=== PATIENT | female | born 1975 | race Caucasian/White ===

== ENCOUNTER 2021-02-05 15:06 | Inpatient (IN) | payer MEDICAID, SELFPAY ==
[~2021-02-05] VITALS: Ht 154.9 cm; Wt 59.5 kg
[2021-02-05 16:26] VITALS: BP_SYST 155
[2021-02-05] MEDS ORDERED: HALOPERIDOL LACTATE 5 MG/ML VIAL IM ONE (17:00)
[2021-02-05 17:25] LABS: BILIRUBIN,URINE 1+ (NEGATIVE); BLOOD, URINE 2+ (NEGATIVE); COLOR,URINE YELLOW (YELLOW); GLUCOSE,URINE NEGATIVE (NEGATIVE); KETONES,URINE 3+ (NEGATIVE); LEUKOCYTE ESTERASE ,URINE NEGATIVE (NEGATIVE); NITRITE, URINE NEGATIVE (NEGATIVE); PROTEIN URINE 2+ (NEGATIVE); UROBILINOGEN,URINE 0.2 (0.2-1.0)
[2021-02-05 17:38] LABS: ANION GAP 11 (5-15); BASOPHILS % (AUTO) 0.4 % (0.0-2.0); CALCIUM 9.4 mg/dL (8.4-11.0); CHLORIDE 95 mmol/L (98-107); GLUCOSE 125 mg/dL (70-99); HEMATOCRIT 34.6 % (36-48); HEMOGLOBIN 10.9 g/dL (12.0-16.0); LYMPHOCYTES # (AUTO) 0.8 K/uL (1.0-5.5); LYMPHOCYTES % (AUTO) 12.3 % (20.5-51.5); MEAN CORPUSCULAR HEMOGLOBIN 23 pg (27-31); MEAN CORPUSCULAR HGB CONC 32 % (32-36); MEAN CORPUSCULAR VOLUME 74 fL (79.0-98.0); MONOCYTES # (AUTO) 0.2 K/uL (0.0-1.0); MONOCYTES % (AUTO) 3.3 % (1.7-9.3); NEUTROPHILS # (AUTO) 5.7 K/uL (1.8-7.7); PLATELET COUNT (AUTO) 322 K/uL (130-430); POTASSIUM 3.5 mmol/L (3.5-5.1); PROTHROMBIN TIME 10.2 SECS (9.5-12.5); RED BLOOD CELL COUNT(AUTO) 4.68 MIL/uL (4.2-6.2); RED CELL DISTRIBUTION WIDTH 18.9 % (9.0-15.0); SODIUM SERUM 135 mmol/L (136-145); UREA NITROGEN, BLOOD 24 mg/dL (8-21); WHITE BLOOD COUNT (AUTO) 6.8 K/uL (4.8-10.8)
[2021-02-05 17:40] LABS: ALANINE AMINOTRANSFERASE 30 U/L (12-78); ALBUMIN 4.6 g/dL (3.4-4.8); AMYLASE 47 U/L (0-100); ASPARTATE AMINOTRANSFERASE 31 U/L (10-37); LIPASE 93 U/L (73-393); TOTAL BILIRUBIN 0.5 mg/dL (0.0-1.0)
[2021-02-05 17:42] LABS: CLARITY/URINE HAZY (CLEAR)
[2021-02-05 17:47] LABS: BACTERIA,URINE MODERATE /HPF (None Seen); RBC,URINE 0-3 /HPF (0-3); WBC,URINE 0-3 /HPF (0-3)
[2021-02-05 17:50] LABS: GFR AFRICAN AMERICAN 115 mL/min (>90)
[2021-02-05] MEDS ORDERED: NACL 0.9% 1,000 ML IV ONE (18:00)
[2021-02-05 18:18] LABS: C-REACTIVE PROTEIN QUANT < 0.2 mg/dL (0-0.5)
[2021-02-05] MEDS ORDERED: ASA81 PO (18:24)
[2021-02-05] MEDS ORDERED: METO25TA3 PO (18:24)
[2021-02-05] MEDS ORDERED: ASPIRIN 325 MG TABLET PO ONE (18:45)
[2021-02-05] MEDS ORDERED: MORPHINE 2 MG/ML INJ. SYRINGE IVP ONE (18:45)
[2021-02-05] MEDS ORDERED: PANTOPRAZOLE SODIUM 40 MG/VIAL (PROTONIX) IVP ONE (19:15)
[2021-02-05] MEDS: METOPROLOL SUCCINATE 25 MG TAB.SR.24H (TOPROL XL) PO SCH (19:15)
[2021-02-05] MEDS ORDERED: NITROGLYCERIN 0.4 MG TAB.SUBL SL PRN (19:30)
[2021-02-05] MEDS ORDERED: MAG-AL HYDROX/SIMETH 30 ML UDC PO ONE (19:30)
[2021-02-05] MEDS ORDERED: METOCLOPRAMIDE HCL 10 MG/2 ML VIAL IVP PRN (19:30)
[2021-02-05] MEDS ORDERED: ONDANSETRON HCL 4 MG/2 ML VIAL IVP PRN (19:30)
[2021-02-05] MEDS ORDERED: MAG-AL HYDROX/SIMETH 30 ML UDC PO PRN (19:30)
[2021-02-05 20:00] LABS: BARBITURATE, URINE NEGATIVE (NEG <=200); BENZODIAZEPINE, URINE NEGATIVE (NEG <=150); CANNABINOID, URINE POSITIVE (NEG <=50); COCAINE, URINE NEGATIVE (NEG <=150); METHAMPHETAMINES SCREEN,URINE NEGATIVE (NEG <=500); OPIATE, URINE NEGATIVE (NEG <=100); PHENCYCLIDINE SCREEN,URINE NEGATIVE (NEG <=25); UR TRICYCLIC ANTIDEPRESSANTS NEGATIVE (NEG <=300); URINE AMPHETAMINE NEGATIVE (NEG <=500); URINE METHADONE NEGATIVE (NEG <=200); URINE OXYCODONE SCREEN NEGATIVE (NEG <=100); URINE PROPOXYPHENE SCREEN NEGATIVE (NEG <=300)
[2021-02-05] MEDS: ASPIRIN 81 MG TAB.CHEW PO SCH (20:03)
[2021-02-05] MEDS: D5LR 1,000 ML IV SCH (20:16)
[2021-02-05] MEDS: LORazepam 2 MG/ML VIAL IVP PRN (20:18)
[2021-02-05] MEDS ORDERED: METOPROLOL SUCCINATE 25 MG TAB.SR.24H (TOPROL XL) PO ONE (20:44)
[2021-02-05] MEDS ORDERED: ENOXAPARIN SODIUM 60 MG/0.6 ML SYRINGE SUBCUT SCH (21:00)
[2021-02-05 21:25] LABS: ACETONE, SERUM NEGATIVE (NEGATIVE)
[2021-02-06 02:31] VITALS: BP_SYST 102
[2021-02-06] MEDS: D5LR 1,000 ML IV SCH ×2 (05:02→15:06)
[2021-02-06 06:48] LABS: BASOPHILS % (AUTO) 0.7 % (0.0-2.0); EOSINOPHILS % (AUTO) 0.3 % (0.0-4.0); HEMATOCRIT 28.5 % (36-48); LYMPHOCYTES # (AUTO) 3.1 K/uL (1.0-5.5); MEAN CORPUSCULAR HEMOGLOBIN 23 pg (27-31); MEAN CORPUSCULAR HGB CONC 32 % (32-36); MEAN CORPUSCULAR VOLUME 74 fL (79.0-98.0); MONOCYTES # (AUTO) 0.6 K/uL (0.0-1.0); MONOCYTES % (AUTO) 9.3 % (1.7-9.3); NEUTROPHILS # (AUTO) 2.3 K/uL (1.8-7.7); NEUTROPHILS % (AUTO) 37.7 % (40.0-70.0); PLATELET COUNT (AUTO) 254 K/uL (130-430); RED BLOOD CELL COUNT(AUTO) 3.85 MIL/uL (4.2-6.2); RED CELL DISTRIBUTION WIDTH 18.7 % (9.0-15.0); WHITE BLOOD COUNT (AUTO) 6.1 K/uL (4.8-10.8)
[2021-02-06 07:45] VITALS: BP_SYST 112
[2021-02-06 08:14] LABS: ALBUMIN 3.4 g/dL (3.4-4.8); CALCIUM 8.8 mg/dL (8.4-11.0); CREATININE 0.53 mg/dL (0.55-1.30); PHOSPHORUS 3.3 mg/dL (2.7-4.5); THYROID STIMULATING HORMONE 3.48 uIu/mL (0.36-3.74); TOTAL BILIRUBIN 0.4 mg/dL (0.0-1.0)
[2021-02-06] MEDS ORDERED: MILK OF MAGNESIA 30 ML UDC PO ONE (08:15)
[2021-02-06] MEDS ORDERED: BISACODYL 10 MG/SUPPOSITORY RC ONE (08:15)
[2021-02-06] MEDS: ASPIRIN 81 MG TAB.CHEW PO SCH (08:48)
[2021-02-06] MEDS: PANTOPRAZOLE SODIUM 40 MG/VIAL (PROTONIX) IVP SCH ×2 (08:48→21:10)
[2021-02-06] MEDS: METOPROLOL SUCCINATE 25 MG TAB.SR.24H (TOPROL XL) PO SCH (08:49)
[2021-02-06] MEDS: LORazepam 2 MG/ML VIAL IVP PRN ×3 (08:58→23:14)
[2021-02-06 09:45] LABS: POTASSIUM 2.9 mmol/L (3.5-5.1)
[2021-02-06 11:23] VITALS: BP_SYST 93
[2021-02-06] MEDS ORDERED: POTASSIUM CHLORIDE 40 MEQ, LIDOCAINE JECT 2% PF 100 MG 50 MG in NS 250 ML IV ONE (11:30)
[2021-02-06 15:30] VITALS: BP_SYST 99
[2021-02-06] MEDS ORDERED: POTASSIUM CHLORIDE 20 MEQ TAB.PRT.SR PO ONE (17:30)
[2021-02-06 20:00] VITALS: BP_SYST 97
[2021-02-06] MEDS ORDERED: POTASSIUM CHLORIDE 20 MEQ TAB.PRT.SR PO SCH (21:00)
[2021-02-06] MEDS: POTASSIUM CHLORIDE 20 MEQ TAB.PRT.SR PO SCH (21:09)
[2021-02-06] MEDS: TEMAZEPAM 15 MG CAPSULE PO PRN (21:09)
[2021-02-07] VITALS: BP_SYST 96
[2021-02-07 07:01] LABS: BASOPHILS % (AUTO) 0.9 % (0.0-2.0); EOSINOPHILS % (AUTO) 0.6 % (0.0-4.0); HEMATOCRIT 25.3 % (36-48); HEMOGLOBIN 7.9 g/dL (12.0-16.0); LYMPHOCYTES # (AUTO) 1.9 K/uL (1.0-5.5); MEAN CORPUSCULAR HEMOGLOBIN 23 pg (27-31); MEAN CORPUSCULAR HGB CONC 31 % (32-36); MEAN CORPUSCULAR VOLUME 75 fL (79.0-98.0); MONOCYTES # (AUTO) 0.3 K/uL (0.0-1.0); MONOCYTES % (AUTO) 8.9 % (1.7-9.3); NEUTROPHILS # (AUTO) 1.1 K/uL (1.8-7.7); NEUTROPHILS % (AUTO) 32.6 % (40.0-70.0); PLATELET COUNT (AUTO) 211 K/uL (130-430); RED BLOOD CELL COUNT(AUTO) 3.37 MIL/uL (4.2-6.2); RED CELL DISTRIBUTION WIDTH 19.1 % (9.0-15.0); WHITE BLOOD COUNT (AUTO) 3.3 K/uL (4.8-10.8)
[2021-02-07 07:56] LABS: CALCIUM 8.1 mg/dL (8.4-11.0); CREATININE 0.52 mg/dL (0.55-1.30); PHOSPHORUS 3.8 mg/dL (2.7-4.5); POTASSIUM 3.5 mmol/L (3.5-5.1); TOTAL BILIRUBIN 0.2 mg/dL (0.0-1.0)
[2021-02-07 08:00] VITALS: BP_SYST 119
[2021-02-07] MEDS: METOPROLOL SUCCINATE 25 MG TAB.SR.24H (TOPROL XL) PO SCH (08:52)
[2021-02-07] MEDS: POTASSIUM CHLORIDE 20 MEQ TAB.PRT.SR PO SCH ×2 (08:52→21:08)
[2021-02-07] MEDS: PANTOPRAZOLE SODIUM 40 MG/VIAL (PROTONIX) IVP SCH ×2 (08:53→21:09)
[2021-02-07] MEDS: ASPIRIN 81 MG TAB.CHEW PO SCH (08:53)
[2021-02-07] MEDS: D5LR 1,000 ML IV SCH ×3 (11:30→21:30)
[2021-02-07 12:00] VITALS: BP_SYST 125
[2021-02-07] MEDS: ACETAMINOPHEN 325 MG TABLET PO PRN (12:37)
[2021-02-07] MEDS: LORazepam 2 MG/ML VIAL IVP PRN (13:41)
[2021-02-07 14:39] LABS: BASOPHILS % (AUTO) 0.7 % (0.0-2.0); EOSINOPHILS % (AUTO) 0.8 % (0.0-4.0); HEMATOCRIT 26.3 % (36-48); HEMOGLOBIN 8.4 g/dL (12.0-16.0); LYMPHOCYTES # (AUTO) 1.9 K/uL (1.0-5.5); LYMPHOCYTES % (AUTO) 46.3 % (20.5-51.5); MEAN CORPUSCULAR HEMOGLOBIN 24 pg (27-31); MEAN CORPUSCULAR HGB CONC 32 % (32-36); MEAN CORPUSCULAR VOLUME 75 fL (79.0-98.0); MONOCYTES # (AUTO) 0.3 K/uL (0.0-1.0); MONOCYTES % (AUTO) 7.8 % (1.7-9.3); NEUTROPHILS # (AUTO) 1.9 K/uL (1.8-7.7); NEUTROPHILS % (AUTO) 44.4 % (40.0-70.0); PLATELET COUNT (AUTO) 225 K/uL (130-430); RED BLOOD CELL COUNT(AUTO) 3.51 MIL/uL (4.2-6.2); RED CELL DISTRIBUTION WIDTH 18.9 % (9.0-15.0); WHITE BLOOD COUNT (AUTO) 4.2 K/uL (4.8-10.8)
[2021-02-07 15:01] LABS: TOTAL IRON BIND. CAPACITY 355 ug/dL (250-450)
[2021-02-07] MEDS ORDERED: DIATR MEGLU/DIATRIZ SOD 30 ML SOLUTION PO ONE (16:12)
[2021-02-07 20:00] VITALS: BP_SYST 108
[2021-02-07] MEDS: SOD FERRIC GLUC COMPLEX/SUC 125 MG in NS 100 ML IV SCH (21:00)
[2021-02-07] MEDS: TEMAZEPAM 15 MG CAPSULE PO PRN (21:08)
[2021-02-08 04:00] VITALS: BP_SYST 118
[2021-02-08] MEDS ORDERED: SOD FERRIC GLUC COMPLEX/SUC 62.5 MG/5 ML VIAL (FERRLECIT) IV ONE (06:19)
[2021-02-08 06:35] LABS: BASOPHILS % (AUTO) 0.7 % (0.0-2.0); HEMATOCRIT 27.3 % (36-48); HEMOGLOBIN 8.5 g/dL (12.0-16.0); LYMPHOCYTES # (AUTO) 2.1 K/uL (1.0-5.5); LYMPHOCYTES % (AUTO) 52.3 % (20.5-51.5); MEAN CORPUSCULAR HEMOGLOBIN 23 pg (27-31); MEAN CORPUSCULAR HGB CONC 31 % (32-36); MEAN CORPUSCULAR VOLUME 75 fL (79.0-98.0); MONOCYTES # (AUTO) 0.3 K/uL (0.0-1.0); MONOCYTES % (AUTO) 8.5 % (1.7-9.3); NEUTROPHILS # (AUTO) 1.5 K/uL (1.8-7.7); NEUTROPHILS % (AUTO) 37.5 % (40.0-70.0); PLATELET COUNT (AUTO) 241 K/uL (130-430); RED BLOOD CELL COUNT(AUTO) 3.63 MIL/uL (4.2-6.2); RED CELL DISTRIBUTION WIDTH 18.7 % (9.0-15.0); WHITE BLOOD COUNT (AUTO) 4.1 K/uL (4.8-10.8)
[2021-02-08 07:03] LABS: ALBUMIN 3.5 g/dL (3.4-4.8); CALCIUM 9.2 mg/dL (8.4-11.0); CREATININE 0.54 mg/dL (0.55-1.30); TOTAL BILIRUBIN 0.2 mg/dL (0.0-1.0)
[2021-02-08] MEDS: D5LR 1,000 ML IV SCH ×2 (07:30→17:31)
[2021-02-08 07:55] VITALS: BP_SYST 112
[2021-02-08] MEDS: METOPROLOL SUCCINATE 25 MG TAB.SR.24H (TOPROL XL) PO SCH (08:28)
[2021-02-08 08:30] LABS: TOTAL IRON BIND. CAPACITY 360 ug/dL (250-450)
[2021-02-08] MEDS: PANTOPRAZOLE SODIUM 40 MG/VIAL (PROTONIX) IVP SCH ×2 (08:36→22:16)
[2021-02-08] MEDS: POTASSIUM CHLORIDE 20 MEQ TAB.PRT.SR PO SCH ×2 (08:36→22:16)
[2021-02-08] MEDS: ACETAMINOPHEN 325 MG TABLET PO PRN (08:36)
[2021-02-08] MEDS: ASPIRIN 81 MG TAB.CHEW PO SCH (08:36)
[2021-02-08] MEDS: LORazepam 2 MG/ML VIAL IVP PRN ×2 (10:40→17:20)
[2021-02-08 12:00] VITALS: BP_SYST 103
[2021-02-08 16:00] VITALS: BP_SYST 130
[2021-02-08 20:00] VITALS: BP_SYST 122
[2021-02-08] MEDS: SOD FERRIC GLUC COMPLEX/SUC 125 MG in NS 100 ML IV SCH (22:17)
[2021-02-08] MEDS: TEMAZEPAM 15 MG CAPSULE PO PRN (23:06)
[2021-02-09 01:24] VITALS: BP_SYST 101
[2021-02-09 06:06] LABS: FOLATE (FOLIC ACID) 14.1 ng/mL (>3.0)
[2021-02-09 07:01] LABS: BASOPHILS % (AUTO) 0.9 % (0.0-2.0); EOSINOPHILS % (AUTO) 1.1 % (0.0-4.0); HEMATOCRIT 29.3 % (36-48); HEMOGLOBIN 9.3 g/dL (12.0-16.0); LYMPHOCYTES # (AUTO) 1.5 K/uL (1.0-5.5); LYMPHOCYTES % (AUTO) 37.5 % (20.5-51.5); MEAN CORPUSCULAR HEMOGLOBIN 24 pg (27-31); MEAN CORPUSCULAR HGB CONC 32 % (32-36); MEAN CORPUSCULAR VOLUME 74 fL (79.0-98.0); MONOCYTES # (AUTO) 0.3 K/uL (0.0-1.0); MONOCYTES % (AUTO) 7.7 % (1.7-9.3); NEUTROPHILS # (AUTO) 2.1 K/uL (1.8-7.7); NEUTROPHILS % (AUTO) 52.8 % (40.0-70.0); PLATELET COUNT (AUTO) 262 K/uL (130-430); RED BLOOD CELL COUNT(AUTO) 3.94 MIL/uL (4.2-6.2); RED CELL DISTRIBUTION WIDTH 19.3 % (9.0-15.0); RETICULOCYTE COUNT 1.2 % (0.5-1.5); WHITE BLOOD COUNT (AUTO) 3.9 K/uL (4.8-10.8)
[2021-02-09 07:49] VITALS: BP_SYST 139
[2021-02-09 07:57] LABS: CALCIUM 8.9 mg/dL (8.4-11.0); CREATININE 0.54 mg/dL (0.55-1.30); POTASSIUM 4.4 mmol/L (3.5-5.1)
[2021-02-09] MEDS: POTASSIUM CHLORIDE 20 MEQ TAB.PRT.SR PO SCH (09:39)
[2021-02-09] MEDS: METOPROLOL SUCCINATE 25 MG TAB.SR.24H (TOPROL XL) PO SCH (09:39)
[2021-02-09] MEDS: ASPIRIN 81 MG TAB.CHEW PO SCH (09:39)
[2021-02-09] MEDS: PANTOPRAZOLE SODIUM 40 MG/VIAL (PROTONIX) IVP SCH (09:39)
[2021-02-09 12:00] VITALS: BP_SYST 113
[2021-02-09] MEDS ORDERED: PRO40 PO (12:11)
[2021-02-09] MEDS ORDERED: MULT-1117 PO (12:12)
[2021-02-09] MEDS ORDERED: SOD FERRIC GLUC COMPLEX/SUC 125 MG in NS 100 ML IV ONE (12:15)
[2021-02-09] MEDS ORDERED: ONDA4TAB5 PO (12:19)
[2021-02-09 14:10] VITALS: BP_SYST 113
[2021-02-09] MEDS ORDERED: CYANOCOBALAMIN 1000 MCG/ML VIAL IM ONE (15:30)
[2021-02-09] MEDS ORDERED: FLU VACC QS2021-22(6MOS UP)/PF 0.5 ML/SYR SYRINGE I.M. ONE (16:15)
[2021-02-10] MEDS ORDERED: CYANOCOBALAMIN 1000 MCG/ML VIAL IM SCH (09:00)
== END 2021-02-09 17:15 | disposition home or self-care (01) | DRG 812 ==
LOC: SED 15:06 → STU 18:25 → SMU 02-08 09:57
PROVIDERS: ADMIT Internal Medicine; ATTEND Internal Medicine
DX: T40.711A Poisoning by cannabis, accidental (unintentional), initial encounter (principal); I21.4 Non-ST elevation (NSTEMI) myocardial infarction; D25.9 Leiomyoma of uterus, unspecified; D50.9 Iron deficiency anemia, unspecified; E87.6 Hypokalemia; F10.21 Alcohol dependence, in remission; F12.10 Cannabis abuse, uncomplicated; I48.0 Paroxysmal atrial fibrillation; K31.84 Gastroparesis; R11.2 Nausea with vomiting, unspecified; K29.70 Gastritis, unspecified, without bleeding; K59.00 Constipation, unspecified; K21.9 Gastro-esophageal reflux disease without esophagitis; R31.29 Other microscopic hematuria; I10 Essential (primary) hypertension; F41.9 Anxiety disorder, unspecified; N95.1 Menopausal and female climacteric states; Z20.822 Contact with and (suspected) exposure to COVID-19; Z79.82 Long term (current) use of aspirin; Z79.899 Other long term (current) drug therapy; Z88.6 Allergy status to analgesic agent; Z88.5 Allergy status to narcotic agent; Z83.3 Family history of diabetes mellitus; Z79.01 Long term (current) use of anticoagulants; Z87.891 Personal history of nicotine dependence; Z90.49 Acquired absence of other specified parts of digestive tract; Y92.89 Other specified places as the place of occurrence of the external cause
CPT/HCPCS: 36415; 71045; 74018; 76376; 76830-TC; 76857; 80048; 80053; 80061; 80307; 81000; 82009; 82150; 82272; 82607; 82728; 82746; 83540; 83550; 83605; 83690; 83735; 83880; 84100; 84439; 84443; 84484; 84703; 85025; 85044; 85610-TC; 85730-TC; 86140; 86886; 86900; 86901; 93005; 93306; 96361; 96372; 96374; 96375; 99285; C9113; G0378; J1630; J1650; J2060; J2270; J2916; J3420; J3480; J7050; Q9964; Q9967

== ENCOUNTER 2021-06-07 11:06 | Emergency (ER) | payer MEDICAID, SELFPAY ==
[~2021-06-07] VITALS: Ht 154.9 cm; Wt 63.5 kg
[2021-06-07 11:06] VITALS: BP_SYST 159
[~2021-06-07 11:06] MED LIST: ASA81 PO; METO25TA3 PO; MULT-1117 PO; ONDA4TAB5 PO; PRO40 PO
[2021-06-07] MEDS ORDERED: ASPIRIN 81 MG TAB.CHEW PO ONE (12:00)
[2021-06-07] MEDS ORDERED: NITROGLYCERIN LINGUAL 400 mCg/SPRAY SL PRN (12:00)
[2021-06-07 12:05] LABS: BASOPHILS % (AUTO) 0.4 % (0.0-2.0); EOSINOPHILS % (AUTO) 0.1 % (0.0-4.0); HEMATOCRIT 37.7 % (36-48); HEMOGLOBIN 12.5 g/dL (12.0-16.0); LYMPHOCYTES # (AUTO) 1.6 K/uL (1.0-5.5); LYMPHOCYTES % (AUTO) 31.1 % (20.5-51.5); MEAN CORPUSCULAR HEMOGLOBIN 29 pg (27-31); MEAN CORPUSCULAR HGB CONC 33 % (32-36); MEAN CORPUSCULAR VOLUME 89 fL (79.0-98.0); MONOCYTES # (AUTO) 0.3 K/uL (0.0-1.0); MONOCYTES % (AUTO) 6.4 % (1.7-9.3); NEUTROPHILS # (AUTO) 3.1 K/uL (1.8-7.7); PLATELET COUNT (AUTO) 201 K/uL (130-430); RED BLOOD CELL COUNT(AUTO) 4.26 MIL/uL (4.2-6.2); RED CELL DISTRIBUTION WIDTH 14.7 % (9.0-15.0)
[2021-06-07 12:09] LABS: CREATININE 0.53 mg/dL (0.55-1.30); POTASSIUM 3.5 mmol/L (3.5-5.1)
[2021-06-07 12:17] LABS: ALBUMIN 4.2 g/dL (3.4-4.8); TOTAL BILIRUBIN 0.7 mg/dL (0.0-1.0)
[2021-06-07] MEDS ORDERED: KETOROLAC TROMETHAMINE 30 MG VIAL IVP ONE (13:00)
[2021-06-07 14:17] VITALS: BP_SYST 128
== END 2021-06-07 14:15 | disposition home or self-care (01) ==
LOC: SED 11:06
DX: R07.2 Precordial pain (principal); I10 Essential (primary) hypertension
CPT/HCPCS: 36415; 71045; 80053; 83880; 84484; 85025; 93005; 96374; 99285; J1885